=== PATIENT | female | born 1955 | race Caucasian/White ===

== ENCOUNTER 2018-02-08 11:53 | Day surgery (SDC) | payer OTHER ==
[~2018-02-08 11:53] MED LIST: ACETAMINOPHEN 325 MG TAB PO; PHENYLEPHRINE HCL 10 % OPHTH. SOL 5ML OD
[2018-02-08] MEDS: LIDOCAINE 3.5 % 1ML OPHTH TOPICAL GEL OU (12:50)
[2018-02-08] MEDS: CYCLOPENTOLATE 2% OPHTH SOLN 2ML BTL OD (12:55)
[2018-02-08] MEDS: TROPICAMIDE 1% OPHTH SOLN 2ML OD (12:55)
[2018-02-08] MEDS: PHENYLEPHRINE 2.5% OPHTH SOL 2ML OD (12:55)
[2018-02-08] MEDS: OFLOXACIN 0.3 % (OCUFLOX) OPTH SOL 5ML OD (12:55)
[2018-02-08] MEDS ORDERED: fentaNYL 100 MCG/2 ML INJECTION (J3010) As Ordered (14:07)
[2018-02-08] MEDS ORDERED: MIDAZOLAM INJ 2 MG/2 ML VIAL (J2250) As Ordered (14:07)
[2018-02-08] MEDS: POVIDONE-IODINE 5% OPHTH PREP SOL 30ML As Ordered (14:11)
[2018-02-08] MEDS: BSS with VANC/TOB/EPI for EYE CASES IR (14:13)
[2018-02-08] MEDS: LIDOCAINE 1% SDV 5 ML VIAL As Ordered (14:13)
[2018-02-08] MEDS: HEALON DUET (HEALON 10MG/ML 0.55ML & HEALON ENDOCOAT 30MG/ML 0.85ML) As Ordered (14:13)
[2018-02-08] MEDS: TRIAMCINOLONE PRES FR 40 MG/ML 1ML(TRIESENCE)(OR EYE ONLY)(J3300 PER 1MG) As Ordered (14:13)
[2018-02-08] MEDS: MOXIFLOXACIN IN BSS 0.25MG/0.25ML INTRACAMERAL INJ (OR EYE ONLY)(J2280) As Ordered (14:13)
[2018-02-08] MEDS: LIDOCAINE 2% W/EPIN INJ 20ML **PRES FREE XX (14:14)
[2018-02-08] MEDS ORDERED: HEALON DUET (HEALON 10MG/ML 0.55ML & HEALON ENDOCOAT 30MG/ML 0.85ML) As Ordered (14:16)
[2018-02-08] MEDS ORDERED: ACETYLCHOLINE OPHTH SOLN 1% 2ML (MIOCHOL-E) As Ordered (14:22)
[2018-02-08] MEDS ORDERED: TRIMETHOBENZAMIDE 300 MG CAP PO (15:00)
[2018-02-08] MEDS: AcetaZOLAMIDE 500 MG ER CAP PO (15:00)
== END 2018-02-08 15:00 | disposition home or self-care (01) ==
LOC: M SDC 11:53
DX: H25.9 Unspecified age-related cataract (principal); E78.5 Hyperlipidemia, unspecified; I10 Essential (primary) hypertension; K21.9 Gastro-esophageal reflux disease without esophagitis; Z79.899 Other long term (current) drug therapy; Z88.8 Allergy status to other drugs, medicaments and biological substances
CPT/HCPCS: 66984

== ENCOUNTER 2018-02-15 08:21 | Day surgery (SDC) | payer OTHER ==
[~2018-02-15 08:21] MED LIST changes: +MIDAZOLAM INJ 2 MG/2 ML VIAL (J2250) As Ordered; -PHENYLEPHRINE HCL 10 % OPHTH. SOL 5ML OD; +PHENYLEPHRINE HCL 10 % OPHTH. SOL 5ML OS; +fentaNYL 100 MCG/2 ML INJECTION (J3010) As Ordered
[2018-02-15] MEDS ORDERED: AcetaZOLAMIDE 500 MG ER CAP PO (08:30)
[2018-02-15] MEDS ORDERED: TRIMETHOBENZAMIDE 300 MG CAP PO (08:30)
[2018-02-15] MEDS: TROPICAMIDE 1% OPHTH SOLN 2ML OS (09:47)
[2018-02-15] MEDS: PHENYLEPHRINE 2.5% OPHTH SOL 2ML OS (09:47)
[2018-02-15] MEDS: CYCLOPENTOLATE 2% OPHTH SOLN 2ML BTL OS (09:47)
[2018-02-15] MEDS: LIDOCAINE 3.5 % 1ML OPHTH TOPICAL GEL OU (09:47)
[2018-02-15] MEDS: OFLOXACIN 0.3 % (OCUFLOX) OPTH SOL 5ML OS (09:47)
[2018-02-15] MEDS: CEFUROXIME 1MG/0.1ML INTRACAMERAL INJ As Ordered ×2 (11:04→11:10)
[2018-02-15] MEDS: HEALON DUET (HEALON 10MG/ML 0.55ML & HEALON ENDOCOAT 30MG/ML 0.85ML) As Ordered ×2 (11:06→11:10)
[2018-02-15] MEDS: TRIAMCINOLONE PRES FR 40 MG/ML 1ML(TRIESENCE)(OR EYE ONLY)(J3300 PER 1MG) As Ordered (11:10)
[2018-02-15] MEDS: BSS with VANC/TOB/EPI for EYE CASES IR (11:10)
[2018-02-15] MEDS: LIDOCAINE 1% SDV 5 ML VIAL As Ordered (11:10)
[2018-02-15] MEDS: POVIDONE-IODINE 5% OPHTH PREP SOL 30ML As Ordered (11:10)
== END 2018-02-15 11:55 | disposition home or self-care (01) ==
LOC: M SDC 08:21
DX: H25.9 Unspecified age-related cataract (principal); I10 Essential (primary) hypertension; E78.5 Hyperlipidemia, unspecified; K21.9 Gastro-esophageal reflux disease without esophagitis; Z79.899 Other long term (current) drug therapy
CPT/HCPCS: 66984